=== PATIENT | female | born 1985 | race Caucasian/White ===

== ENCOUNTER 2018-10-06 15:48 | Inpatient (IN) | payer OTHER ==
[2018-10-06 17:40] LABS: ADD MAN DIFF? NO
[2018-10-06 18:00] LABS: RUPTURE FETAL MEMBRANES NEGATIVE (NEGATIVE)
[2018-10-06] MEDS ORDERED: METHYLERGONOVINE 0.2 MG INJ IM (18:30)
[2018-10-06] MEDS ORDERED: BUTORPHANOL 2 MG INJ IV (18:30)
[2018-10-06] MEDS ORDERED: CARBOPROST 250 MCG INJ IM (18:30)
[2018-10-06] MEDS ORDERED: MISOPROSTOL 200 MCG TAB PR (18:30)
[2018-10-06] MEDS ORDERED: OXYCODONE/ACETAMINOPHEN (5/325) TAB PO (18:30)
[2018-10-06] MEDS ORDERED: OXYTOCIN 30 UNITS/LR 500 ML IV ×2 (18:30)
[2018-10-06] MEDS ORDERED: LIDOCAINE 1% (MPF) 30 ML INJ INJ (18:30)
[2018-10-06] MEDS: LACTATED RINGER'S 1,000 ML IV (18:48)
[2018-10-06 19:06] LABS: WHITE BLOOD COUNT 11.6 10^3/ul (4.8-10.8)
[2018-10-06 19:06] LABS: BASOPHILS % 0.3 % (0.0-2.0); EOSINOPHILS # 0.1 10^3/ul (0.0-0.5); EOSINOPHILS % 0.6 % (0.0-7.0); HEMATOCRIT 37.8 % (37.0-47.0); LYMPHOCYTES # 1.6 10^3/ul (0.8-2.9); LYMPHOCYTES % 13.6 % (15.0-51.0); MEAN CORPUSCULAR HEMOGLOBIN 31.5 pg (29.0-33.0); MEAN CORPUSCULAR HGB CONC 34.4 g/dl (32.0-37.0); MEAN CORPUSCULAR VOLUME 91.5 fl (82.0-101.0); MEAN PLATELET VOLUME 9.6 fl (7.4-10.4); MONOCYTE # 0.6 10^3/ul (0.3-0.9); MONOCYTES % 5.4 % (0.0-11.0); NEUTROPHIL # 9.2 10^3/ul (1.6-7.5); NEUTROPHILS % 79.2 % (39.0-77.0); PLATELET COUNT 263 10^3/UL (140-415); RED BLOOD COUNT 4.13 10^6/ul (4.20-5.40); RED CELL DISTRIBUTION WIDTH 12.8 % (11.5-14.5)
[2018-10-06] MEDS: AMPICILLIN 2 GM/NS (PMX) 100 ML IV (19:07)
[2018-10-06 19:22] LABS: INR 0.96; PROTIME 12.9 Sec (11.9-14.9)
[2018-10-06 19:23] LABS: PARTIAL THROMBOPLASTIN TIME 26.7 Sec (23.0-35.0)
[2018-10-06 19:57] LABS: HEPATITIS B SURFACE ANTIGEN NEGATIVE (NEGATIVE)
[2018-10-06] MEDS: OXYTOCIN 30 UNITS/LR 500 ML IV (20:51)
[2018-10-06] MEDS: AMPICILLIN 1 GM/NS (PMX) 50 ML IV (22:30)
[2018-10-07] MEDS: LACTATED RINGER'S 1,000 ML IV ×2 (00:05→05:47)
[2018-10-07] MEDS ORDERED: FENTAnyl 2MCG/ML-ROPIV 0.2% 100 ML (00:45)
[2018-10-07] MEDS: AMPICILLIN 1 GM/NS (PMX) 50 ML IV ×2 (02:53→06:01)
[2018-10-07] MEDS ORDERED: LIDOCAINE 1% (MPF) 30 ML INJ (05:58)
[2018-10-07] MEDS: OXYTOCIN 30 UNITS/LR 500 ML IV ×2 (07:35→09:00)
[2018-10-07] MEDS ORDERED: CARBOPROST 250 MCG INJ IM (08:00)
[2018-10-07] MEDS ORDERED: OXYTOCIN 30 UNITS/LR 500 ML IV (08:00)
[2018-10-07] MEDS ORDERED: METHYLERGONOVINE 0.2 MG TAB PO (08:00)
[2018-10-07] MEDS ORDERED: MISOPROSTOL 200 MCG TAB PR (08:00)
[2018-10-07] MEDS ORDERED: HYDROCODONE/APAP (5/325) TAB PO (08:00)
[2018-10-07] MEDS ORDERED: ZOLPIDEM 5 MG TAB PO (08:00)
[2018-10-07] MEDS ORDERED: METHYLERGONOVINE 0.2 MG INJ IM (08:00)
[2018-10-07] MEDS ORDERED: DIPHENHYDRAMINE 25 MG CAP PO (08:00)
[2018-10-07] MEDS ORDERED: ONDANSETRON 4 MG INJ IV (08:00)
[2018-10-07] MEDS ORDERED: IBUPROFEN 600 MG TAB PO (08:00)
[2018-10-07] MEDS ORDERED: NA PHOSPHATE/BIPHOS 133 ML ENEMA PR (08:00)
[2018-10-07] MEDS ORDERED: MAGNESIUM HYDROXIDE 30ML CUP PO (08:00)
[2018-10-07] MEDS: LANOLIN 7 GM TUBE TOP (10:09)
[2018-10-07] MEDS: BENZOCAINE 20% 56 ML SPRAY TOP (10:09)
[2018-10-07] MEDS: SENNA/DOCUSATE NA (8.6MG/50MG) TAB PO ×2 (10:09→21:31)
[2018-10-07] MEDS: IBUPROFEN 600 MG TAB PO ×2 (10:10→23:36)
[2018-10-07] MEDS: LACTATED RINGER'S 1,000 ML IV* (13:40)
[2018-10-07] MEDS: WITCH HAZEL/GLYCERIN PAD PR (16:25)
[2018-10-07 22:01] LABS: RAPID PLASMA REAGIN NONREACTIVE (NR)
[2018-10-07] MEDS: HYDROCODONE/APAP (5/325) TAB PO (23:37)
[2018-10-08] MEDS: IBUPROFEN 600 MG TAB PO (05:38)
[2018-10-08 08:22] LABS: ADD MAN DIFF? NO
[2018-10-08 08:31] LABS: WHITE BLOOD COUNT 14.8 10^3/ul (4.8-10.8)
[2018-10-08 08:31] LABS: BASOPHIL # 0.1 10^3/ul (0.0-0.1); BASOPHILS % 0.3 % (0.0-2.0); EOSINOPHILS # 0.2 10^3/ul (0.0-0.5); EOSINOPHILS % 1.4 % (0.0-7.0); HEMATOCRIT 32.6 % (37.0-47.0); LYMPHOCYTES # 2.1 10^3/ul (0.8-2.9); LYMPHOCYTES % 14.3 % (15.0-51.0); MEAN CORPUSCULAR HEMOGLOBIN 31.3 pg (29.0-33.0); MEAN CORPUSCULAR HGB CONC 33.7 g/dl (32.0-37.0); MEAN CORPUSCULAR VOLUME 92.9 fl (82.0-101.0); MEAN PLATELET VOLUME 9.5 fl (7.4-10.4); MONOCYTE # 1.1 10^3/ul (0.3-0.9); MONOCYTES % 7.2 % (0.0-11.0); NEUTROPHIL # 11.3 10^3/ul (1.6-7.5); NEUTROPHILS % 76.1 % (39.0-77.0); PLATELET COUNT 240 10^3/UL (140-415); RED BLOOD COUNT 3.51 10^6/ul (4.20-5.40)
[2018-10-08] MEDS: SENNA/DOCUSATE NA (8.6MG/50MG) TAB PO ×2 (09:51→21:00)
[2018-10-08] MEDS: MAGNESIUM HYDROXIDE 30ML CUP PO (09:52)
[2018-10-08] MEDS: BISACODYL 10 MG SUPP PR (09:53)
[2018-10-08] MEDS: HYDROCODONE/APAP (5/325) TAB PO (13:23)
[2018-10-09] MEDS: IBUPROFEN 600 MG TAB PO ×2 (00:12→05:52)
[2018-10-09] MEDS: DIPHTH/TET/ACEL PERTUSS (ADULT) 0.5 ML VIAL IM* (07:42)
[2018-10-09] MEDS: SENNA/DOCUSATE NA (8.6MG/50MG) TAB PO (09:29)
[2018-10-09] MEDS: INFLUENZA VIRUS VACCINE 0.5 ML (DISPENSING) IM* (09:30)
[2018-10-09] MEDS: MEASLES,MUMPS,RUBELLA VACCINE INJ SC* (09:34)
[2018-10-09] MEDS: VARICELLA VACCINE LIVE/PF 1,350 UNIT/0.5 ML ML SC* (09:34)
== END 2018-10-09 14:10 | disposition home or self-care (01) | DRG 807 ==
LOC: OBT 15:48 → PP1 10-08 01:33 → L-D 15:49 → PP1 10-07 08:45 → OBT 17:20 → L-D 17:20
PROVIDERS: Obstetrics & Gynecology
PROC: 10E0XZZ Delivery of Products of Conception, External Approach (ICD-10-PCS; principal; 2018-10-07)
PROC: 0KQM0ZZ Repair Perineum Muscle, Open Approach (ICD-10-PCS; 2018-10-07)
DX: O42.113 Preterm premature rupture of membranes, onset of labor more than 24 hours following rupture, third trimester (principal); Z37.0 Single live birth; O70.1 Second degree perineal laceration during delivery; Z3A.37 37 weeks gestation of pregnancy; Z23 Encounter for immunization
CPT/HCPCS: 62319; 76815; 76818; 84112; 85025; 85610; 85730; 86592; 86850; 86900; 86901; 87070; 87340; 88307; 90686; 90716